=== PATIENT | female | born 1985 ===

== ENCOUNTER 2017-03-26 19:50 | Emergency (ER) | payer MEDICAID, OTHER ==
[2017-03-26 19:51] VITALS: BMI 38.0
[2017-03-26 20:48] VITALS: TEMP 97.8
[2017-03-26 21:30] LABS: RBC URINE 2 /hpf (0-3); URINE BACTERIA RARE (<OCC); URINE BILIRUBIN NEGATIVE (NEGATIVE); URINE COLOR Yellow (YELLOW); URINE GLUCOSE (UA) NORMAL (Normal); URINE KETONE NEGATIVE (NEGATIVE); URINE LEUKOCYTE ESTERASE NEG Leu/uL (Negative); URINE PROTEIN NEGATIVE (NEGATIVE); URINE UROBILINOGEN NORMAL mg/dL (0.2-1.0); WBC URINE 1 /hpf (0-5)
[2017-03-26 21:33] LABS: URINE BLOOD NEGATIVE (NEGATIVE)
--- NOTE | 2017-03-26 21:34 | C.PDOC ---
History Of Present Illness Patient presents to the ER with a complaint of nausea, vomiting, diarrhea, and not being able to tolerate PO after eating sinhala food 2 days ago. Patient denies any fever or chills. Time Seen by Provider: 03/26/17 21:33 Chief Complaint (Nursing): Abdominal Pain History Per: Patient History/Exam Limitations: no limitations Onset/Duration Of Symptoms: Days (2) Current Symptoms Are (Timing): Still Present Context: Food (Vincentian food) Associated Symptoms: Nausea, Vomiting, Diarrhea. denies: Fever, Chills Exacerbating Factors: None Alleviating Factors: None Recent travel outside of the [place]: No Past Medical History Reviewed: Historical Data, Nursing Documentation, Vital Signs Vital Signs: Last Vital Signs Temp 97.8 F 03/26/17 20:45 Pulse 87 03/26/17 20:45 Resp 20 03/26/17 20:45 BP 124/85 03/26/17 20:45 Pulse Ox 100 03/26/17 22:14 - Medical History PMH: Gall Bladder Disease, HTN (controlled without meds), Pneumonia Surgical History: Cholecystectomy, Hernia Repair - [facility] Procedures INJECT/INFUSE NEC (10/23/12) LAPAROSCOPIC CHOLECYSTECTOMY (03/23/14) LAPAROSCOPIC ROBOTIC ASSISTED PROCEDURE (03/23/14) NEBULIZER THERAPY (10/23/12) Family History: States: Unknown Family Hx - Social History Hx Tobacco Use: No Hx Alcohol Use: Yes Hx Substance Use: No - Immunization History Hx Tetanus Toxoid Vaccination: No Hx Influenza Vaccination: No Hx Pneumococcal Vaccination: No Review Of Systems Constitutional: Negative for: Fever, Chills Gastrointestinal: Positive for: Nausea, Vomiting, Diarrhea Physical Exam - Physical Exam Appears: Well, Non-toxic Skin: Warm, Dry Oral Mucosa: Moist Chest: Symmetrical, No Tenderness Cardiovascular: Rhythm Regular, No Murmur Respiratory: No Rales, No Rhonchi, No Wheezing Gastrointestinal/Abdominal: Soft, Tenderness (Mild mid epigastric) Neurological/Psych: Oriented x3 ED Course And Treatment - Laboratory Results Result Diagrams: 03/26/17 21:29 03/26/17 21:29 O2 Sat by Pulse Oximetry: 100 (Room air) Pulse Ox Interpretation: Normal Progress Note: Pepcid IVP, zofran IVP, and IV fluids administered. Reevaluation Time: 22:55 Reassessment Condition: Improved Medical Decision Making Medical Decision Making: Upon provider reevaluation patient is feeling better, is medically stable, and requires no further treatment in the ED at this time. Patient will be discharged home with Rx for zofran . Counseling was provided and all questions were answered regarding diagnosis and need for follow up with Dr Mcdonald. There is agreement to discharge plan. Return if symptoms persist or worsen. Disposition Counseled Patient/Family Regarding: Studies Performed, Diagnosis, Need For Followup, Rx Given - Disposition Referrals: Cal Mcdonald Jr., MD [Medical Doctor] - Disposition: HOME/ ROUTINE Disposition Time: 21:33 Condition: FAIR Prescriptions: Ondansetron ODT [Zofran ODT] 1 odt PO BID PRN #10 odt PRN Reason: Nausea/Vomiting Instructions: Food Poisoning (ED) - Clinical Impression Clinical Impression: Food poisoning - Scribe Statement The provider has reviewed the documentation as recorded by the Scribe Ernesto Petersen All medical record entries made by the Scribe were at my direction and personally dictated by me. I have reviewed the chart and agree that the record accurately reflects my personal performance of the history, physical exam, medical decision making, and the department course for this patient. I have also personally directed, reviewed, and agree with the discharge instructions and disposition.
[2017-03-26 21:35] LABS: BASO # 0.1 K/uL (0.0-0.2); BASO % 0.9 % (0.0-2.0); EOS % 0.6 % (0.0-4.0); HEMATOCRIT 38.8 % (34.0-47.0); LYMPH # 1.5 K/uL (1.0-4.3); MEAN CELL VOLUME 81.8 fL (81.0-99.0); MEAN CORPUSCULAR HEMOGLOBIN 27.3 pg (27.0-31.0); MEAN CORPUSCULAR HGB CONC 33.4 g/dL (33.0-37.0); MEAN PLATELET VOLUME 7.9 fL (7.2-11.7); MONO # 0.7 K/uL (0.0-0.8); MONO % 12.4 % (0.0-10.0); RED CELL DISTRIBUTION WIDTH 14.3 % (11.5-14.5); WHITE BLOOD COUNT 5.8 K/uL (4.8-10.8)
[2017-03-26 21:42] LABS: CHLORIDE 103 mmol/L (98-107); SODIUM 140 mmol/L (132-148)
[2017-03-26 21:43] LABS: POTASSIUM 3.9 mmol/L (3.6-5.2)
[2017-03-26 21:45] LABS: ALB/GLOB RATIO 1.3 (1.0-2.1); ALKALINE PHOSPHATASE 54 U/L (38-126); ALT/SGPT 22 U/L (9-52); AST/SGOT 18 U/L (14-36); BILIRUBIN,TOTAL 0.5 mg/dL (0.2-1.3); BLOOD UREA NITROGEN 12 mg/dL (7-17); CARBON DIOXIDE 25 mmol/L (22-30); GFR AFRICAN-AMERICAN > 60; GLUCOSE,RANDOM 93 mg/dL (65-105); TOTAL PROTEIN 7.5 g/dL (6.3-8.3)
[2017-03-26 21:46] LABS: CALCIUM 8.3 mg/dl (8.6-10.4)
[2017-03-26] MEDS ORDERED: Sodium Chloride 0.9% 1,000 ML IV ONE (21:50)
[2017-03-26] MEDS ORDERED: Sodium Chloride 0.9% 1,000 ML ONE (22:08)
[2017-03-26 23:04] VITALS: BP 120/80; PULSE 80; RESP 14; O2SAT 99
== END 2017-03-26 23:04 | disposition home or self-care (01) ==
LOC: C.ER 19:50
DX: T62.91XA Toxic effect of unspecified noxious substance eaten as food, accidental (unintentional), initial encounter (principal); R11.2 Nausea with vomiting, unspecified
CPT/HCPCS: 80053; 81001; 83690; 84703; 85025; 96374; 96375; 99283; J2405; J7040

== ENCOUNTER 2018-07-22 10:13 | Emergency (ER) | payer OTHER ==
[2018-07-22 10:19] VITALS: BMI 38.0
[2018-07-22 10:21] VITALS: BP 136/99; PULSE 88; RESP 18; TEMP 97.7; O2SAT 100
[2018-07-22] MEDS ORDERED: Naproxen 550 mg Tab PO STA (10:56)
[2018-07-22] MEDS ORDERED: Naproxen 550 mg Tab PO ONE (11:05)
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
== END 2018-07-22 11:23 | disposition home or self-care (01) ==
LOC: C.ER 10:13
DX: M43.6 Torticollis (principal); I10 Essential (primary) hypertension

== ENCOUNTER 2019-01-12 09:50 | Emergency (ER) | payer OTHER ==
[2019-01-12 09:50] VITALS: BMI 38.0
[2019-01-12 10:06] VITALS: BP 119/86; PULSE 102; RESP 20; TEMP 98.5; O2SAT 97
--- NOTE | 2019-01-12 11:26 | RAD ---
HISTORY: cough r/o infiltrate COMPARISON: None available TECHNIQUE: Chest PA and lateral FINDINGS: LUNGS: No focal consolidation. Please note that chest x-ray has limited sensitivity for the detection of pulmonary masses. PLEURA: No significant pleural effusion identified. No definite pneumothorax . CARDIOVASCULAR: Heart size appears within normal limits. Faint atherosclerotic calcifications present. OSSEOUS STRUCTURES: Degenerative changes of the spine. VISUALIZED UPPER ABDOMEN: Unremarkable. OTHER FINDINGS: None. IMPRESSION: No focal consolidation.
--- NOTE | 2019-01-12 16:11 | C.PDOC ---
History Of Present Illness 33 y/o female presents to the ER complaining of dry cough which has been present for the past 5 days. Patient is also complaining of right eye discharge in the morning today. Patient denies having fever,chills,nausea, and vomiting. Time Seen by Provider: 01/12/19 10:12 Chief Complaint (Nursing): Eye Problem History Per: Patient History/Exam Limitations: no limitations Onset/Duration Of Symptoms: Days Current Symptoms Are (Timing): Still Present Severity: Moderate Past Medical History Reviewed: Historical Data, Nursing Documentation, Vital Signs Vital Signs: Last Vital Signs Temp 98.5 F 01/12/19 10:02 Pulse 102 H 01/12/19 10:02 Resp 20 01/12/19 10:02 BP 119/86 01/12/19 10:02 Pulse Ox 97 01/12/19 10:02 - Medical History PMH: Gall Bladder Disease, HTN (controlled without meds), Pneumonia Denies: Chronic Kidney Disease Surgical History: Cholecystectomy, Hernia Repair - [facility] Procedures INJECT/INFUSE NEC (10/23/12) LAPAROSCOPIC CHOLECYSTECTOMY (03/23/14) LAPAROSCOPIC ROBOTIC ASSISTED PROCEDURE (03/23/14) NEBULIZER THERAPY (10/23/12) Family History: States: No Known Family Hx - Social History Hx Tobacco Use: No Hx Alcohol Use: Yes Hx Substance Use: No - Immunization History Hx Tetanus Toxoid Vaccination: No Hx Influenza Vaccination: No Hx Pneumococcal Vaccination: No Review Of Systems Except As Marked, All Systems Reviewed And Found Negative. Constitutional: Negative for: Fever, Chills Cardiovascular: Negative for: Chest Pain Respiratory: Positive for: Cough. Negative for: Shortness of Breath Gastrointestinal: Negative for: Nausea, Vomiting Physical Exam - Physical Exam Appears: Non-toxic, No Acute Distress Skin: Normal Color, Warm, Dry Head: Atraumatic, Normacephalic Eye(s): bilateral: Normal Inspection, Other (no discharge) Ear(s): Bilateral: Normal Nose: Normal Oral Mucosa: Moist Throat: Normal, No Erythema, No Exudate Neck: Supple Chest: Symmetrical Cardiovascular: Rhythm Regular Respiratory: Normal Breath Sounds, No Rales, No Rhonchi, No Wheezing Neurological/Psych: Oriented x3, Normal Speech ED Course And Treatment O2 Sat by Pulse Oximetry: 97 (RA) Pulse Ox Interpretation: Normal Medical Decision Making Medical Decision Making: Plan: --CXR Disposition - Dis[facility] [Non-Staff[facility] - Disposition: HOME/ ROUTINE Disposition Time: 11:25 Condition: GOOD Additional Instructions: MARIAH MULLER, thank you for letting us take care of you today. The emergency medical care you received today was directed at your acute symptoms. If you were prescribed any medication, please fill it and take as directed. It may take several days for your symptoms to resolve. Return to the Emergency Department if your symptoms worsen, do not improve, or if you have any other problems. Please contact your doctor or call one of the physicians/clinics you have been referred to that are listed on the Patient Visit Information form that is included in your discharge packet. Bring any paperwork you were given at [facility] with you along with any medications you are taking to your follow up visit. Our treatment cannot replace ongoing medical care by a primary care provider outside of the emergency department. Thank you for allowing the [facility] team to be part of your care today. Follow up with your primary care doctor in 2-3 days for re-evaluation and further management. Prescriptions: Ciprofloxacin 0.3% [Ciloxan 0.3% Ophth SOLN] 1 drop OD Q6 #1 bottle Instructions: Conjunctivitis ([place]keye) (DC), Viral Syndrome (DC) Forms: [employer] (German), Work Excuse - Clinical Impression Clinical Impression: Viral syndrome, Conjunctivitis - Scribe Statement The provider has reviewed the documentation as recorded by the Jannyibwero Davis Provider Attestation: All medical record entries made by the Jannyibe were at my direction and personally dictated by me. I have reviewed the chart and agree that the record accurately reflects my personal performance of the history, physical exam, medical decision making, and the department course for this patient. I have also personally directed, reviewed, and agree with the discharge instructions and disposition.
== END 2019-01-12 11:46 | disposition home or self-care (01) ==
LOC: C.ER 09:50
DX: B34.9 Viral infection, unspecified (principal); H10.9 Unspecified conjunctivitis; I10 Essential (primary) hypertension